=== PATIENT | male | born 2000 | race Hispanic/Latino ===

== ENCOUNTER 2018-03-24 09:43 | Day surgery (SDC) | payer BC ==
[2018-03-24 10:14] LABS: BUN Blood Urea Nitrogen 14 mg/dL (7-18); Bicarbonate 32 mmol/L (21-32); Glucose Level 89 mg/dL (74-106); Potassium 4.1 mmol/L (3.5-5.1); Sodium Level 140 mmol/L (136-145)
[2018-03-24 10:19] LABS: Absolute Lymphocytes (CBC) 2.1 K/uL (0.7-4.9); Absolute Monocytes 0.6 K/uL (0.1-1.3); Absolute Neutrophil 4.4 K/uL (1.8-8.0); Basophils % 0.2 % (0-1.3); Eosinophils % 1.5 % (0-4.4); Hematocrit 46.6 % (39.6-49.0); Lymphocytes % 28.9 % (15.3-44.8); MPV 7.6 fL (7.6-11.3); Monocytes % 8.9 % (3.3-12.3); RBC Red Blood Cell Count 5.68 M/uL (4.33-5.43)
[2018-03-24] MEDS ORDERED: Ringers Lactate 1,000 ML IV ONE (10:25)
[2018-03-24] MEDS ORDERED: CEFAZOLIN 1GM (PREMIX IV) 1 GM/50 ML BAG ONE (10:25)
[2018-03-24] MEDS: BUPIVACAINE 0.5% PF 10 ML VIAL ONE ×2 (11:00→11:22)
[2018-03-24] MEDS ORDERED: FENTANYL CITR 100 MCG/2 ML ONE (11:27)
[2018-03-24] MEDS ORDERED: PROPOFOL 200 MG/20 ML VIAL IV ONE (11:27)
[2018-03-24] MEDS ORDERED: LIDOCAINE 2% MPF 5 ML VIAL ONE (11:28)
[2018-03-24] MEDS ORDERED: ONDANSETRON 4 MG/2 ML VIAL ONE (11:30)
[2018-03-24] MEDS ORDERED: MIDAZOLAM HCL 2 MG/2 ML INJ ONE (11:30)
[2018-03-24] MEDS ORDERED: GLYCOPYRROLATE 0.2 MG/ML SYR ONE (11:38)
--- NOTE | 2018-03-24 11:49 | P.BOP ---
Preoperative diagnosis: infected submandibular mass with abscess Postoperative diagnosis: same Primary procedure: excisional biospy infected submandibular mass with abcess drainage 4x3 cm Estimated blood loss: <5cc Specimen: pus culture, inflammatory mass Findings: see dicta Anesthesia: General Complications: None Drain(s): Other Transferred to: Recovery Room Condition: Good
[2018-03-24] MEDS: MEPERIDINE HCL 25 MG/0.5 ML ONE ×3 (12:21→12:26)
[2018-03-24] MEDS ORDERED: CODEINE 30MG/APAP 300MG TAB ONE (13:17)
--- NOTE | 2018-03-24 23:39 | OP ---
Date of Procedure: 03/24/2018 Surgeon: Amadeo Kelly MD Preoperative Diagnosis: Infected submandibular mass with abscess. Postoperative Diagnosis: Infected submandibular mass with abscess. Procedure: Excision biopsy of infected submandibular mass with abscess drainage, 4 x 3 cm. Anesthesia: General plus local. Specimens: Pus culture with inflammatory mass. Indications: This is a case of a 17-year-old patient with a large tender mass on the submandibular r egion with purulent discharge, comes to my office. The patient states he has had mass there before a nd now became red and tender and is starting to put pus. Very tender. So, the patient was booked an d went within hours to urgent surgery with benefits, alternatives, and risks of excisional biopsy of mass with drainage of abscess fully explained which included, but not limited to infection, bleeding, damage to adjacent structures, anesthesia complications, scar tissue, nonhealing wound, ID, and even . He also understands this may not relieve any symptoms. He might need more than one surgical intervention. He understood and signed a consent. The area of concern was marked by me and the pat ient in the holding room. Description Of Procedure: The patient was brought to the operating room, placed in supine position. Anesthesia was done without complication. The facial area was prepped and draped in a sterile fashi on. A time-out was called. An incision was made to include part of the skin all the way down to sub cutaneous tissue in the submandibular region. Inflammatory mass was found with abscess associated wi th about 4 x 3 cm once loculations were explored. The mass was excised. Pus was culture. Area was irrigated. Local anesthetic was applied, and the area was packed with wet-to-dry dressing. The patient tolerated the procedure well. The patient was sent to recovery in [facility]. EDENILSON/SINA Voice ID: [id number] Report ID: [id number]
--- NOTE | 2018-03-25 00:06 | DS ---
Date of Discharge: 03/24/2018 Diagnosis: Right submandibular infected mass with abscess. Procedure: Excisional biopsy of infected submandibular mass with abscess drainage. Disposition: Home. Discharge Instructions: Wet-to-dry dressing daily. Follow in my office in 1 week. The patient will be taking Bactrim DS p.o. b.i.d. The family members will be doing dressing changes. Avoid tape on the rest of the pores of his face. EDENILSON/SINA Voice ID: [id number] Report ID: [id number]
== END 2018-03-24 14:17 | disposition home or self-care (01) ==
LOC: OR 09:43
PROVIDERS: ATTEND Surgery
PROC: 0J910ZZ Drainage of Face Subcutaneous Tissue and Fascia, Open Approach (ICD-10-PCS; 2018-03-24)
PROC: 0JB10ZZ Excision of Face Subcutaneous Tissue and Fascia, Open Approach (ICD-10-PCS; principal; 2018-03-24 10:30)
DX: L72.0 Epidermal cyst (principal); K12.2 Cellulitis and abscess of mouth; Z83.3 Family history of diabetes mellitus; Z82.49 Family history of ischemic heart disease and other diseases of the circulatory system
CPT/HCPCS: 36415; 80048; 85025; 87070; 87075; 87205; 88304; J0690; J2175; J2250; J2405; J2704; J3010

== ENCOUNTER 2019-09-20 21:06 | Emergency (ER) | payer BC ==
--- OUTSIDE RECORDS SUMMARY | 2019-09-20 21:07 | XMS REPORT | Continuity of Care Document ---
:2000 Author Organization [facility] t Address [address] [place] [address] Care Team Providers Name Role Phone Kin LOGAN, Topher Attending Clinician Problems This patient has no known problems. Allergies, Adverse Reactions, Alerts This patient has no known allergies or adverse reactions. Medications This patient has no known medications. Procedures This patient has no known procedures. Encounters Start End Encounter Admission Attending Care Care Encounter Source Date/Time Date/Time Type Type Clinicians Facility Department ID 2019-05-26 2019-05-26 Office PRATEEK Sanderson [id number] 14:17:44 14:32:44 Visit [facility] [id number] Topher Teixeira [id number] Amanda [phone] [address] Results This patient has no known results.
[2019-09-20] MEDS ORDERED: ACETAMINOPHEN 500 MG TAB ONE (21:46)
--- NOTE | 2019-09-21 02:15 | ER ---
Nurse's Notes [facility] Name: Ruben Bustamante Age: 18 yrs Sex: Male : 2000 Arrival Date: 09/20/2019 Time: 21:08 Bed Waiting Private MD: Diagnosis: Presentation: 09/19 21:36 Acuity: JOSE ARMANDO 3 sg 09/20 01:05 Chief complaint: Patient states: sore throat, hot and cold flashes, headache, diarrhea, lp1 shortness of breath on waking up yesterday morning. Coronavirus screen: Patient denies a cough. Patient reports shortness of breath or difficulty breathing. Patient reports a measured and/or subjective temperature greater than 100.4F. Patient denies travel on a cruise ship or to a country the [facility] currently lists as an affected area. Patient denies contact with known and/or suspected case of COVID-19. Ebola Screen: No symptoms or risks identified at this time. Initial Sepsis Screen: Does the patient meet any 2 criteria? No. Patient's initial sepsis screen is negative. Does the patient have a suspected source of infection? No. Patient's initial sepsis screen is negative. Risk Assessment: Do you want to hurt yourself or someone else? Patient reports no desire to harm self or others. Onset of symptoms was September 20, 2019. 01:05 Method Of Arrival: Ambulatory lp1 Triage Assessment: 01:06 General: Appears in no apparent distress. Behavior is calm. Pain: Complains of pain in lp1 head, general body. EENT: Reports pain when swallowing. Neuro: Level of Consciousness is awake, alert, obeys commands. Cardiovascular: Patient's skin is warm and dry. Respiratory: Respiratory effort is even, unlabored. GI: Reports diarrhea, Patient currently denies vomiting. : No signs and/or symptoms were reported regarding the genitourinary system. Derm: Skin is intact, Skin is dry, Skin is normal. Musculoskeletal: No deficits noted. Historical: - Allergies: 09/19 21:16 No Known Allergies; sg - PSHx: 21:16 None; sg - Immunization history:: Adult Immunizations up to date. - Social history:: Smoking status: Patient denies any tobacco usage or history of. Screenin/09 01:06 Abuse screen: Denies threats or abuse. Denies injuries from another. Nutritional lp1 screening: No deficits noted. Tuberculosis screening: No symptoms or risk factors identified. Fall Risk None identified. Vital Signs: 09/19 21:36 Pulse 115; Resp 18; Temp 102.2; Pulse Ox 100% on R/A; Weight 112.49 kg (R); Height 5 sg ft. 11 in. (180.34 cm); Pain 6/10; 21:36 BP 126 / 72; sg 09/20 01:04 BP 121 / 74; Pulse 94; Resp 18; Temp 99.2(O); Pulse Ox 97% on R/A; lp1 09/19 21:36 Body Mass Index 34.59 (112.49 kg, 180.34 cm) ED Course: 09/19 21:08 Patient arrived in ED. cl3 21:16 Arm band placed on. 21:36 Triage completed. 09/20 01:07 Patient has correct armband on for positive identification. lp1 Administered Medications: 09/19 21:43 Drug: Tylenol 1000 mg Route: PO; 09/20 01:04 Follow up: Response: No adverse reaction; Temperature is decreased lp1 Outcome: 01:57 Patient left the ED. lp1 Signatures: Chuy Arroyo RN RN Keyla Ferrer RN RN lp1 Isiah Garzon cl3 Corrections: (The following items were deleted from the chart) 02:14 02:14 Patient left the ED. lp1 lp1
[2019-09-21 02:30] VITALS: BP 121/74; TEMP 99.2; O2SAT 97
== END 2019-09-21 02:14 | disposition left against medical advice (07) ==
LOC: ER 21:06
DX: J02.9 Acute pharyngitis, unspecified (principal); Z53.21 Procedure and treatment not carried out due to patient leaving prior to being seen by health care provider
CPT/HCPCS: 87070; 87081; 87804; 99283